=== PATIENT | female | born 1960 | race Caucasian/White ===

== ENCOUNTER 2020-10-05 13:56 | Emergency (ER) | payer OTHER, SELFPAY ==
[2020-10-05 14:00] VITALS: BP 155/81; PULSE 68; RESP 12; TEMP 36.5; O2SAT 98
[2020-10-05 14:09] VITALS: BP 155/81; PULSE 68; RESP 12; TEMP 36.5; O2SAT 98
--- NOTE | 2020-10-05 14:40 | ED.EAR ---
HPI - Ear Problem General Chief complaint: Ear Stated complaint: ear pain Source: patient and RN notes reviewed Limitations: no limitations History of Present Illness HPI Narrative: The vaccinated patient, a non-smoker/nondrinker on minimal meds pending an upcoming vacation trip, presents with ear discomfort. Patient states she has about nearly weeklong history of bilateral ear discomfort, after river water exposure. No fever, URI?sinusitis, vertigo, decreased acuity, discharge-but she does have some bubbling/tinnitus sensation especially on the left. She would like some scopolamine for her upcoming trip Related Data Home Medications Medication Instructions Recorded Confirmed cetirizine [Zyrtec] mg 10/05/20 ergocalciferol (vitamin D2) 10/05/20 vitamins A,C,C-andb-vxoqyt 1 cap PO BID 10/05/20 10/05/20 [PreserVision AREDS] Allergies Allergy/AdvReac Type Severity Reaction Status Date / Time azithromycin Allergy Unknown ABD PAIN Unverified 08/07/15 09:41 amoxicillin [From Augmentin] AdvReac Abdominal Verified 10/05/20 14:08 Pain clavulanic acid AdvReac Abdominal Verified 10/05/20 14:08 [From Augmentin] Pain Review of Systems Review of Systems: Narrative: General/Constitutional: No weight loss,fever Eyes: N0: Redness,discharge Ears/Nose/Throat: No: Epistaxis,ear discharge Respiratory: Denies: Hemoptysis Gastrointestinal: No Vomiting, Bleeding-rectal Skin: No Lumps, eruption Neurologic: No Focal Weakness,Sz Hematologic: Denies: Petechiae/Purpura Psychiatric: No: Suicida ideationl All Other Systems: Reviewed and Negative PMFSH Comments At time of signature, agree with nursing past medical, surgical, social and family history. There is no relevant family history pertinent to the presenting complaint Exam Narrative: Exam Narrative: General Appearance: Well appearing, Well nourished EYE: PERRLA, Conjunctiva clear Ears: Right auditory canal inflamed, TM normal; left EAC normal; left TM bulging with fluid Nose: Rhinorrhea, Mucousal erythema Mouth/Throat: MM moist, Uvula midline, Pharyngeal erythema Neck: Supple, No adenopathy Respiratory: No respiratory distress, Breath sounds equal, Clear to auscultation Musculoskeletal: Non tender, Normal strength Skin: Warm, Dry Neurological: A&O x3,, Normal affect Course Vital Signs Vital signs: Vital Signs Temperature 97.7 F 10/05/20 14:00 Pulse Rate 68 10/05/20 14:00 Respiratory Rate 12 10/05/20 14:00 Blood Pressure 155/81 H 10/05/20 14:00 Pulse Oximetry 98 10/05/20 14:00 Temperature 97.7 F 10/05/20 14:09 Pulse Rate 68 10/05/20 14:09 Respiratory Rate 12 10/05/20 14:09 Blood Pressure 155/81 H 10/05/20 14:09 Pulse Oximetry 98 10/05/20 14:09 Medical Decision Making Vital Signs Vital Signs: Vital Signs Temperature 97.7 F 10/05/20 14:00 Pulse Rate 68 10/05/20 14:00 Respiratory Rate 12 10/05/20 14:00 Blood Pressure 155/81 H 10/05/20 14:00 Pulse Oximetry 98 10/05/20 14:00 Temperature 97.7 F 10/05/20 14:09 Pulse Rate 68 10/05/20 14:09 Respiratory Rate 12 10/05/20 14:09 Blood Pressure 155/81 H 10/05/20 14:09 Pulse Oximetry 98 10/05/20 14:09 Discharge Plan Discharge Clinical Impression: Otitis externa Qualifiers: Otitis externa type: unspecified type Chronicity: acute Laterality: right Qualified Code(s): H60.501 - Unspecified acute noninfective otitis externa, right ear Left otitis media Qualifiers: Otitis media type: unspecified Qualified Code(s): H66.92 - Otitis media, unspecified, left ear Patient Disposition: Home, Self-Care Condition: Stable Instructions: Swimmer's Ear (GEN) Prescriptions: New skkwwagn-dwsuqcwub-VA 3.5-10,000-1 mg/mL-unit/mL-% solution 4 drop RIGHT EAR Q8H Qty: 10 RF: 0 cefuroxime axetil 500 mg tablet 500 mg PO Q12H Qty: 14 RF: 0 scopolamine base 1 mg over 3 days patch 3 day 1 patch transdermal Q3D PRN (Mami
== END 2020-10-05 14:48 | disposition home or self-care (01) ==
PROVIDERS: Emergency Provider Emergency Medicine
DX: H60.501 Unspecified acute noninfective otitis externa, right ear (principal); H66.92 Otitis media, unspecified, left ear
CPT/HCPCS: 99213; G0463